=== PATIENT | male | born 1955 | race Caucasian/White ===

== ENCOUNTER → 2021-11-22 | Outpatient (CLI) | payer MEDICARE | END | disposition home or self-care (01) | LOC: US 15:00 | PROVIDERS: ATTEND Urology | DX: N50.3 Cyst of epididymis (principal); N43.2 Other hydrocele ==

== ENCOUNTER 2024-09-01 07:31 | Emergency (ER) | payer OTHER ==
[~2024-09-01] VITALS: Ht 180.3 cm; Wt 120.7 kg
[2024-09-01] MEDS ORDERED: cloNIDine Hydrochloride 0.1 MG TAB PO ONE (08:10)
[2024-09-01 08:15] LABS: BASO # 0.1 10*3/uL (0.0-0.1); BASO % 0.5 % (0.0-1.0); EOS # 0.4 10*3/uL (0.0-0.4); HEMATOCRIT 41.2 % (42.0-52.0); MEAN CELL VOLUME 90.9 fl (80.0-94.0); MEAN CORPUSCULAR HGB 30.5 pg (27.0-31.0); MEAN CORPUSCULAR HGB CONC 33.5 g/dl (33.0-37.0); MEAN PLATELET VOLUME 8.9 fl (9.6-12.3); MONO # 0.6 10*3/uL (0.1-1.0); MONO % 6.4 % (3.0-9.0); NEUT # 6.2 10*3/uL (2.3-7.9); NEUT % 65.7 % (47.0-73.0); PLATELET COUNT AUTOMATED 223 10*3/uL (130-400); RED BLOOD COUNT 4.53 10*6/uL (4.50-5.90); RED CELL DISTRI WIDTH 12.4 % (0-14.5); WHITE BLOOD COUNT 9.5 10*3/uL (4.8-10.8)
[2024-09-01 08:34] LABS: BUN 16 mg/dl (9-23); CHLORIDE 105 mmol/L (98-107); POTASSIUM 3.7 mmol/L (3.4-5.1)
[2024-09-01] MEDS ORDERED: AMLODIPINE BESYL5 MG PO (09:46)
== END 2024-09-01 09:57 | disposition home or self-care (01) ==
LOC: ED 07:31
PROVIDERS: Internal Medicine
DX: I10 Essential (primary) hypertension (principal); R51.9 Headache, unspecified; R06.02 Shortness of breath